=== PATIENT | male | born 1955 | race African-American/Black ===

== ENCOUNTER 2017-03-02 14:10 | Emergency (ER) | payer OTHER ==
[~2017-03-02] VITALS: Ht 170.2 cm; Wt 78.0 kg
[~2017-03-02 14:10] MED LIST: AMLODIPINE BESY10 MG ORAL; BACTRIM-DS1 EA ORAL; BENAZEPRIL HCL20 MG ORAL; TRAMADOL HCL50 MG ORAL
[2017-03-02] MEDS ORDERED: CLOTRIMAZOLE15 GM TOPIC (14:37)
[2017-03-02 14:57] VITALS: BP 126/78
[2017-03-02 16:01] VITALS: BP 126/78
--- NOTE | 2017-03-06 14:51 | Emergency Room Report ---
History of Present Illness General Chief Complaint: Male Urogenital Problems Source: Patient Present Illness HPI 61-year-old male presents ED for evaluation. States he has a rash on his penis. Only noticed it this morning when showering. Does not know how long it has been there. Denies any itchiness or pain. Denies any discharge. States he 's not had sex in several months. No other aggravating relieving factors. Denies any other associated symptoms Allergies: Coded Allergies: PENICILLINS (Verified Allergy, Unknown, 03/08/11) Patient History Past Medical History: HTN Past Surgical History: none Pertinent Family History: none Social History: Denies: smoking, alcohol use, drug use Immunizations: UTD Reviewed Nursing Documentation: PMH: Agreed, PSxH: Agreed Nursing Documentation-PMH Past Medical History: No History, Except For Hx Cardiac Problems: Yes Hx Hypertension: Yes Hx Pacemaker: No Hx Asthma: No Hx COPD: No Hx Diabetes: No Hx Cancer: No Hx Gastrointestinal Problems: No Hx Dialysis: No History Of Psychiatric Problem: No Hx Neurological Problems: No Hx Cerebrovascular Accident: No Hx Seizures: No Review of Systems All Other Systems: negative except mentioned in HPI Physical Exam Vital Signs Date Time Temp Pulse Resp B/P (MAP) Pulse Ox O2 Delivery O2 Flow Rate FiO2 03/02/17 14:17 97.2 112 16 132/85 99 Room Air Sp02 EP Interpretation: reviewed, normal General Appearance: no apparent distress, alert, GCS 15, non-toxic Head: normocephalic, atraumatic Eyes: bilateral eye normal inspection, bilateral eye PERRL ENT: hearing grossly normal, normal pharynx, no angioedema, normal voice Neck: full range of motion, supple/symm/no masses Respiratory: chest non-tender, lungs clear, normal breath sounds, speaking full sentences Cardiovascular #1: regular rate, rhythm, no edema Cardiovascular #2: 2+ carotid (R), 2+ carotid (L), 2+ radial (R), 2+ radial (L) , 2+ dorsalis pedis (R), 2+ dorsalis pedis (L) Gastrointestinal: normal bowel sounds, non tender, soft, non-distended, no guarding, no rebound Rectal: deferred Genitourinary: normal inspection, no CVA tenderness, other - circular lesion on penis. nonindurated. Musculoskeletal: back normal, gait/station normal, normal range of motion, non- tender Neurologic: alert, oriented x3, responsive, motor strength/tone normal, sensory intact, speech normal Psychiatric: judgement/insight normal, memory normal, mood/affect normal, no suicidal/homicidal ideation Reflexes: 3+ bicep (R), 3+ bicep (L), 3+ tricep (R), 3+ tricep (L), 3+ knee (R) , 3+ knee (L) Skin: normal color, no rash, warm/dry, well hydrated Lymphatic: no adenopathy Medical Decision Making Diagnostic Impression: Primary Impression: Penile rash ER Course Hospital Course 61-year-old male presents to ED with rash to penis Differential diagnoses include: Cellulitis, dermatitis, insect bite, abscess Clinical course Patient placed on stretcher. After initial history, physical exam reveals an elderly male in no acute distress. On exam there is a single circular lesion on the penis. Nonerythematous. No induration. Is no discharge. No signs of vesicular rash Differential includes fungal rash versus STD including syphilis Although it is painless it does not look like a chancre. And patient's last sexual activity was approximately 7 months ago. Patient also does has a severe allergy to penicillin and is not willing to try any alternative medications. We will prescribe clotrimazole I do recommend patient followup with PMD to make sure the rash is resolving Diagnosis - penile rash stable and discharged to home with prescription for Ketoconazole. Instructed to followup with PMD. Instructed return to ED if symptoms recur or worsen Last Vital Signs Date Time Temp Pulse Resp B/P (MAP) Pulse Ox O2 Delivery O2 Flow Rate FiO2 03/02/17 16:01 97.4 72 18 126/78 99 Room Air Status: improved Disposition: HOME, SELF-CARE Condition: Stable Scripts Clotrimazole* (LOTRIMIN*) 15 Gm Cream..g. 1 APPLIC TOPIC TWICE A DAY, #15 GM Prov: ROBERT DEL REAL M.D. 03/02/17 Referrals: NON PHYSICIAN (PCP) Patient Instructions: Syphilis ROBERT DEL REAL M.D. Mar 06, 2017 14:51
== END 2017-03-02 16:01 | disposition home or self-care (01) ==
LOC: EMR 14:56
DX: R21 Rash and other nonspecific skin eruption (principal); I10 Essential (primary) hypertension; Z88.0 Allergy status to penicillin
CPT/HCPCS: 99283

== ENCOUNTER 2018-09-21 11:00 | Emergency (ER) | payer OTHER ==
[~2018-09-21] VITALS: Ht 170.2 cm; Wt 78.0 kg
[~2018-09-21 11:00] MED LIST changes: +CLOTRIMAZOLE15 GM TOPIC
--- NOTE | 2018-09-21 11:21 | NUR ---
ED Nurse Note: pt walked in c/o chronic left leg pain and progressively worsening past 2 wks, pt states he had surgery on left leg when he was a little kid. denies swelling nor tenderness, denies any recent injuries. pt ambulates w/ cane. CMS intact BLE, will cont monitor.
[2018-09-21 11:24] VITALS: BP 118/75
[2018-09-21] MEDS ORDERED: HYDROcodone/Acetamin 5/325 tab ORAL ONE (11:45)
[2018-09-21] MEDS ORDERED: NORCO 5-325 TA1 EACH ORAL (11:59)
[2018-09-21 12:20] VITALS: BP 124/79
[2018-09-21] MEDS ORDERED: IBUPROFEN800 MG ORAL (12:20)
--- NOTE | 2018-09-21 12:20 | NUR ---
ED Nurse Note: pt cleared to be d/c per ERMD, pt discharge and aftercare instruction provided w/ prescription, pt education done via discussion and handout, pt advised to follow up with pcp or return to ed if changes in condition, pt verbalized understanding and agrees with plan, vss, ambulatory w/ steady gait w/ cane, left w/ all belongings, accompanied by sister.
--- NOTE | 2018-09-21 14:07 | Diagnostic Imaging Report ---
Indications: Left hip pain Findings: Two views of the left hip were obtained. The views are suboptimal. There is no obvious fracture or malalignment. There is narrowing and osteophyte formation of both hip joints consistent with osteoarthritis. IMPRESSION: No obvious acute injury. Technically suboptimal study.
--- NOTE | 2018-09-21 16:14 | Emergency Room Report ---
History of Present Illness General Chief Complaint: Pain Source: Patient Present Illness HPI Patient is a 62-year-old male who presented after worsening pain to his left hip for 2 weeks. Patient reported having increased sharp pain. He reports having prior pain to his left knee. He states that he had previous surgery as a child. He denies any recent trauma or fever. He denies any leg numbness or tingling. He denies any weakness. Patient has been ambulatory with a cane. Allergies: Coded Allergies: PENICILLINS (Verified Allergy, Unknown, 03/08/11) Patient History Past Medical History: see triage record Reviewed Nursing Documentation: PMH: Agreed; PSxH: Agreed Nursing Documentation-PMH Past Medical History: No History, Except For Hx Cardiac Problems: Yes Hx Hypertension: Yes Hx Pacemaker: No Hx Asthma: No Hx COPD: No Hx Diabetes: No Hx Cancer: No Hx Gastrointestinal Problems: No Hx Dialysis: No Hx Neurological Problems: No Hx Cerebrovascular Accident: No Hx Seizures: No Review of Systems All Other Systems: negative except mentioned in HPI Physical Exam Vital Signs Date Time Temp Pulse Resp B/P (MAP) Pulse Ox O2 Delivery O2 Flow Rate FiO2 09/21/18 11:14 98.6 104 21 118/75 96 Room Air Sp02 EP Interpretation: reviewed, normal General Appearance: normal inspection, well appearing, no apparent distress, alert Head: atraumatic ENT: normal ENT inspection, hearing grossly normal, normal voice Neck: normal inspection, full range of motion, supple, no bony tend Respiratory: normal inspection, lungs clear, normal breath sounds, no respiratory distress, no retraction, no wheezing Cardiovascular #1: regular rate, rhythm, no edema Gastrointestinal: normal inspection, normal bowel sounds, non tender, soft, no guarding, no hernia Genitourinary: no CVA tenderness Musculoskeletal: normal inspection, back normal, normal range of motion Neurologic: normal inspection, alert, oriented x3, responsive, 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 Differential diagnosis include was not limited to fracture, arthritis, septic joint, sciatica among others. X-ray imaging of the left hip 2 views inserted by me showed normal bony alignment without evident fracture there are degenerative changes noted. Patient was noted to have moderate pain was given pain medications. Advised to follow-up with his primary care physician for recheck in the next few days.Patient was advised to follow-up with his primary doctor for pain medication adjustments as needed. Last Vital Signs Date Time Temp Pulse Resp B/P (MAP) Pulse Ox O2 Delivery O2 Flow Rate FiO2 09/21/18 12:26 98.6 09/21/18 12:20 79 18 124/79 100 Room Air Status: improved Disposition: HOME, SELF-CARE Condition: Stable Scripts Ibuprofen* (MOTRIN*) 800 Mg Tablet 800 MG ORAL THREE TIMES A DAY, #30 TAB 0 Refills Prov: Joy Oleary 09/21/18 Hydrocodone Bit/Acetaminophen 5-325* (NORCO 5-325*) 1 Each Tablet 1 TAB ORAL Q6H PRN for For Pain, #15 TAB 0 Refills Prov: Edwar Sheikh MD 09/21/18 Referrals: WILBERT WALKER (PCP) Patient Instructions: Hip Pain Edwar Sheikh MD Sep 21, 2018 16:14
== END 2018-09-21 12:20 | disposition home or self-care (01) ==
LOC: EMR 11:48
DX: M25.552 Pain in left hip (principal); I10 Essential (primary) hypertension; Z88.0 Allergy status to penicillin
CPT/HCPCS: 73502; 99283

== ENCOUNTER 2019-02-14 16:58 | Emergency (ER) | payer OTHER ==
[~2019-02-14] VITALS: Ht 170.2 cm; Wt 69.4 kg
[~2019-02-14 16:58] MED LIST changes: +IBUPROFEN800 MG ORAL; +NORCO 5-325 TA1 EACH ORAL
[2019-02-14] MEDS ORDERED: Omnipaque-300 100ml vial INJ PRN (17:15)
[2019-02-14] MEDS ORDERED: ATORVASTATIN CA40 MG ORAL (17:22)
[2019-02-14] MEDS ORDERED: VITAMIN D35000 UNI2 PO (17:22)
[2019-02-14] MEDS ORDERED: IBUPROFEN600 MG ORAL (17:22)
--- NOTE | 2019-02-14 17:31 | NUR ---
ED Nurse Note Patient walked in to ER with the c/o of blood in the urine. Patient verbalized that he has pain when urinating and just happened today. Patent is alert and oriented x4 and able to make needs known. Ambulatory with cane as an assistive device.
[2019-02-14 17:50] VITALS: BP 141/87
[2019-02-14 17:51] LABS: APPEARANCE,URINE CLOUDY; BILIRUBIN, URINE NEGATIVE (NEGATIVE); COLOR,URINE YELLOW; GLUCOSE, URINE (UA) NEGATIVE (NEGATIVE); KETONES,URINE NEGATIVE (NEGATIVE); LEUKOCYTE ESTERASE ,URINE 3+ (NEGATIVE); NITRITE,URINE POSITIVE (NEGATIVE); PH,URINE 5 (4.5-8.0); PROTEIN,URINE 3+ (NEGATIVE); UROBILINOGEN,URINE NORMAL MG/DL (0.0-1.0)
[2019-02-14] MEDS ORDERED: Bactrim-DS 1 tab ORAL ONE (18:00)
--- NOTE | 2019-02-14 18:01 | Emergency Room Report ---
History of Present Illness General Chief Complaint: Male Urogenital Problems Source: Patient Present Illness HPI 63-year-old male with history of chronic hip pain and surgery in the hip without any new fall or injury here complaining of few hours of painful urination, as well as list of blood in urine. Denies any kidney issues. Denies flank pain radiating to the pubic area. Denies penile discharge, penile trauma, nausea vomiting, fever and chills. Patient has stable vital signs. Denies gross hematuria. Is ambulating with a cane due to his hip pain and left knee pain which is not new and has been assessed at [facility] for it many times in the past. Patient reports that he is mainly here for his urinary symptoms. Denies chest pain, shortness of breath, palpitation, no other associated symptoms has not taken any medication for symptom relief. Allergies: Coded Allergies: PENICILLINS (Verified Allergy, Unknown, 03/08/11) Patient History Past Medical History: see triage record Past Surgical History: unable to obtain Pertinent Family History: none Immunizations: UTD Reviewed Nursing Documentation: PMH: Agreed; PSxH: Agreed Nursing Documentation-PMH Past Medical History: No History, Except For Hx Cardiac Problems: Yes Hx Hypertension: Yes Hx Pacemaker: No Hx Asthma: No Hx COPD: No - sarcoidosis Hx Diabetes: No Hx Cancer: No Hx Gastrointestinal Problems: No Hx Dialysis: No Hx Neurological Problems: No Hx Cerebrovascular Accident: No Hx Seizures: No Review of Systems All Other Systems: negative except mentioned in HPI Physical Exam Vital Signs Date Time Temp Pulse Resp B/P (MAP) Pulse Ox O2 Delivery O2 Flow Rate FiO2 02/14/19 17:06 98.4 96 16 149/91 (110) 95 Room Air Sp02 EP Interpretation: reviewed, normal General Appearance: no apparent distress, alert, GCS 15, non-toxic Head: normocephalic, atraumatic Eyes: bilateral eye normal inspection, bilateral eye PERRL ENT: hearing grossly normal, normal pharynx, no angioedema, normal voice Neck: full range of motion, supple/symm/no masses Respiratory: chest non-tender, lungs clear, normal breath sounds, no rhonchi, no wheezing, speaking full sentences Cardiovascular #1: regular rate, rhythm, no edema, no murmur, normal capillary refill Cardiovascular #2: 2+ dorsalis pedis (R), 2+ dorsalis pedis (L) Gastrointestinal: normal bowel sounds, non tender, soft, non-distended, no guarding, no rebound Rectal: deferred Genitourinary: no CVA tenderness Musculoskeletal: back normal, gait/station normal, normal range of motion, non- tender, no calf tenderness, pelvis stable Neurologic: alert, oriented x3, responsive, motor strength/tone normal, sensory intact, speech normal Psychiatric: judgement/insight normal, memory normal, mood/affect normal, no suicidal/homicidal ideation Skin: no rash Lymphatic: no adenopathy Medical Decision Making PA Attestation Diagnosis and treatment plans were reviewed and discussed with my supervising physician Dr. Soto Diagnostic Impression: Primary Impression: UTI (urinary tract infection) ER Course 63-year-old male with history of chronic hip pain and surgery in the hip without any new fall or injury here complaining of few hours of painful urination, as well as list of blood in urine. Denies any kidney issues. Denies flank pain radiating to the pubic area. Denies penile discharge, penile trauma, nausea vomiting, fever and chills. Patient has stable vital signs. Denies gross hematuria. Is ambulating with a cane due to his hip pain and left knee pain which is not new and has been assessed at [facility] for it many times in the past. Patient reports that he is mainly here for his urinary symptoms. Denies chest pain, shortness of breath, palpitation, no other associated symptoms has not taken any medication for symptom relief. Ddx considered but are not limited to: UTI, pyelonephritis, urinary incontinence , prolapsed bladder, renal stone , prostatitis, BPH Vital signs: are WNL, pt. is afebrile H&PE are most consistent with: UTI ORDERS: UA, urine cx, bactrim DS, pyridium ED INTERVENTIONS: bactrim DS DISCHARGE: At this time pt. is stable for d/c to home. Will provide printed patient care instructions, and any necessary prescriptions. Care plan and follow up instructions have been discussed with the patient prior to discharge. Take medication as directed follow-up with primary care provider emergency room at this time considering patient with no radiation or any chills vomiting. Last Vital Signs Date Time Temp Pulse Resp B/P (MAP) Pulse Ox O2 Delivery O2 Flow Rate FiO2 02/14/19 17:50 97.5 109 16 141/87 99 Room Air Disposition: HOME, SELF-CARE Condition: Stable Scripts Phenazopyridine Hcl* (PYRIDIUM*) 200 Mg Tablet 200 MG ORAL THREE TIMES A DAY for 2 Days, #6 TAB 0 Refills Prov: Brandon Guardado 02/14/19 Trimethoprim/Sulfamethoxazole (Bactrim Ds Tablet) 1 Each Tablet 1 TAB ORAL TWICE A DAY for 10 Days, #20 TAB 800/160 Prov: Brandon Guardado 02/14/19 Referrals: [facility],REFERRING (PCP) Patient Instructions: Urinary Tract Infection Additional Instructions: Take medication as directed follow-up with your primary care provider if worsening symptoms, flank pain, nausea vomiting, fever and chills return to the emergency room if gross hematuria return to the emergency room this time bleeding is secondary to your urinary tract infection Brandon Guardado Feb 14, 2019 18:01
[2019-02-14] MEDS ORDERED: BACTRIM-DS1 EA ORAL (18:03)
[2019-02-14] MEDS ORDERED: PHENAZOPYRIDIN200 MG ORAL (18:03)
[2019-02-14 18:44] VITALS: BP 133/82
--- NOTE | 2019-02-14 18:44 | NUR ---
ER DISCHARGE NOTE: Patient is cleared to be discharged per ERMD, pt is aox4, on room air, with stable vital signs. pt was given dc and prescription instructions, pt was able to verbalize understanding, pt id band and pt is able to ambulate with steady gait. pt took all belongings.
== END 2019-02-14 18:44 | disposition home or self-care (01) ==
LOC: EMR 17:42
DX: N39.0 Urinary tract infection, site not specified (principal); Z88.0 Allergy status to penicillin; I10 Essential (primary) hypertension
CPT/HCPCS: 74177; 81003; 87086; Q9967; Z7502; 99284